=== PATIENT | female | born 1960 | race Hispanic/Latino ===

== ENCOUNTER 2019-10-03 14:46 | Emergency (ER) | payer OTHER ==
[~2019-10-03] VITALS: Ht 165.1 cm; Wt 98.4 kg
--- OUTSIDE RECORDS SUMMARY | 2019-10-03 14:48 | XMS REPORT | Continuity of Care Document ---
Author Author [facility] Organization 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 Allergies, Adverse Reactions, Alerts Allergy Name Allergy Type Status Severity Reaction(s) Onset Date Inacti ve Date Treating Clinician Comments Source No Known Allergies DA Active U 2019-05-03 00:00:00 [facility] No Known Allergies DA Active U 2018-01-15 00:00:00 [facility] No Known Contrast Allergies DA Active U 2006-01-10 00:00: 00 [facility] No Known Drug Allergies DA Active U 2006-01-10 00:00:00 [facility] No Known Food Allergies DA Active U 2006-01-10 00:00:00 [facility] No Known Other Allergies DA Active U 2006-01-10 00:00:00 [facility] Medications This patient has no known medications. Procedures This patient has no known procedures. Results Test Description Test Time Test Comments Results Result Comments Source GLUCOSE BEDSIDE TESTING 2019-05-08 12:00:00 Test Item GLUCOSE BEDSIDE TESTING (test code = GLUBED) 151 mg/dL 70-110 H GLUCOSE BEDSIDE [id number] 08:12:00* Test Item Value Reference Range Interpretation Comments GLUCOSE BEDSIDE TESTING (test code = GLUBED) 140 mg/dL 70-110 H BASIC METABOLIC [id number] 04:06:00* Test Item Value Reference Range Interpretation Comments SODIUM (test code = NA) 137 mmol/L 134-147 N POTASSIUM (test code = K) 3.7 mmol/L 3.4-5.0 N CHLORIDE (test code = CL) 102 mmol/L 100-108 N CARBON DIOXIDE (test code = CO2) 30 mmol/L 21-32 N ANION GAP (test code = GAP) 5.0 GAP calc 4.0-15.0 N GLUCOSE (test code = GLU) 142 MG/DL 70-110 H BLOOD UREA NITROGEN (test code = BUN) 10 MG/DL 7-18 N GLOMERULAR FILTRATION RATE (test code = GFR) >=60 max estimate estG FR >60 CREATININE (test code = CREAT) 0.5 MG/DL 0.6-1.0 L CALCIUM (test code = CA) 8.9 MG/DL 8.5-10.1 N CBC W/AUTO [id number] 03:59:00* Test Item Value Reference Range Interpretation Comments WHITE BLOOD CELL (test code = WBC) 8.7 K/mm3 3.5-11.0 N RED BLOOD CELL (test code = RBC) 3.87 M/mm3 4.70-6.10 L HEMOGLOBIN (test code = HGB) 11.3 G/DL 10.4-14.9 N HEMATOCRIT (test code = HCT) 35.6 % 31.5-44.1 N MEAN CELL VOLUME (test code = MCV) 92.0 Fl 84.5-98.6 N MEAN CELL HGB (test code = MCH) 29.2 pg 27.0-34.2 N MEAN CELL HGB CONCETRATION (test code = MCHC) 31.7 G/DL 31.5-34. 0 N RED CELL DISTRIBUTION WIDTH (test code = RDW) 14.4 SD 11.5-14. 5 N PLATELET COUNT (test code = PLT) 315.0 K/mm3 150-450 N MEAN PLATELET VOLUME (test code = MPV) 10.30 fL 7.0-10.5 N NEUTROPHIL % (test code = NT%) 64.2 % 40-76 N LYMPHOCYTE % (test code = LY%) 24.0 % 20.5-51.1 N MONOCYTE % (test code = MO%) 9.6 % 1.7-9.3 H EOSINOPHIL % (test code = EO%) 1.9 % 0.0-6.0 N BASOPHIL % (test code = BA%) 0.3 % 0.0-2.0 N NEUTROPHIL # (test code = NT#) 5.60 K/mm3 1.8-7.6 N LYMPHOCYTE # (test code = LY#) 2.1 K/mm3 0.6-3.2 N MONOCYTE # (test code = MO#) 0.8 K/mm3 0.3-1.1 N EOSINOPHIL # (test code = EO#) 0.2 K/mm3 0.0-0.4 N BASOPHIL # (test code = BA#) 0.0 K/mm3 0.0-0.1 N MANUAL DIFF REQUIRED (test code = MDIFF) NO DIFF/SCN CRITERIA GLUCOSE BEDSIDE [id number] 20:30:00* Test Item Value Reference Range Interpretation Comments GLUCOSE BEDSIDE TESTING (test code = GLUBED) 124 mg/dL 70-110 H GLUCOSE BEDSIDE [id number] 17:30:00* Test Item Value Reference Range Interpretation Comments GLUCOSE BEDSIDE TESTING (test code = GLUBED) 118 mg/dL 70-110 H GLUCOSE BEDSIDE [id number] 12:19:00* Test Item Value Reference Range Interpretation Comments GLUCOSE BEDSIDE TESTING (test code = GLUBED) 133 mg/dL 70-110 H GLUCOSE BEDSIDE [id number] 12:19:00* Test Item Value Reference Range Interpretation Comments GLUCOSE BEDSIDE TESTING (test code = GLUBED) 125 mg/dL 70-110 H BASIC METABOLIC [id number] 07:17:00* Test Item Value Reference Range Interpretation Comments SODIUM (test code = NA) 137 mmol/L 134-147 N POTASSIUM (test code = K) 3.6 mmol/L 3.4-5.0 N CHLORIDE (test code = CL) 103 mmol/L 100-108 N CARBON DIOXIDE (test code = CO2) 27 mmol/L 21-32 N ANION GAP (test code = GAP) 7.0 GAP calc 4.0-15.0 N GLUCOSE (test code = GLU) 122 MG/DL 70-110 H BLOOD UREA NITROGEN (test code = BUN) 15 MG/DL 7-18 N GLOMERULAR FILTRATION RATE (test code = GFR) >=60 max estimate estG FR >60 CREATININE (test code = CREAT) 0.5 MG/DL 0.6-1.0 L CALCIUM (test code = CA) 8.4 MG/DL 8.5-10.1 L CBC W/AUTO [id number] 07:12:00* Test Item Value Reference Range Interpretation Comments WHITE BLOOD CELL (test code = WBC) 8.8 K/mm3 3.5-11.0 N RED BLOOD CELL (test code = RBC) 3.49 M/mm3 4.70-6.10 L HEMOGLOBIN (test code = HGB) 10.7 G/DL 10.4-14.9 N HEMATOCRIT (test code = HCT) 32.3 % 31.5-44.1 N MEAN CELL VOLUME (test code = MCV) 92.6 Fl 84.5-98.6 N MEAN CELL HGB (test code = MCH) 30.7 pg 27.0-34.2 N MEAN CELL HGB CONCETRATION (test code = MCHC) 33.1 G/DL 31.5-34. 0 N RED CELL DISTRIBUTION WIDTH (test code = RDW) 14.8 SD 11.5-14. 5 H PLATELET COUNT (test code = PLT) 285.0 K/mm3 150-450 N MEAN PLATELET VOLUME (test code = MPV) 10.50 fL 7.0-10.5 N NEUTROPHIL % (test code = NT%) 65.5 % 40-76 LYMPHOCYTE % (test code = LY%) 24.2 % 20.5-51.1 N MONOCYTE % (test code = MO%) 8.8 % 1.7-9.3 N EOSINOPHIL % (test code = EO%) 1.4 % 0.0-6.0 N BASOPHIL % (test code = BA%) 0.1 % 0.0-2.0 N NEUTROPHIL # (test code = NT#) 5.77 K/mm3 1.8-7.6 N LYMPHOCYTE # (test code = LY#) 2.1 K/mm3 0.6-3.2 N MONOCYTE # (test code = MO#) 0.8 K/mm3 0.3-1.1 N EOSINOPHIL # (test code = EO#) 0.1 K/mm3 0.0-0.4 N BASOPHIL # (test code = BA#) 0.0 K/mm3 0.0-0.1 N MANUAL DIFF REQUIRED (test code = MDIFF) NO DIFF/SCN CRITERIA GLUCOSE BEDSIDE [id number] 20:37:00* Test Item Value Reference Range Interpretation Comments GLUCOSE BEDSIDE TESTING (test code = GLUBED) 117 mg/dL 70-110 H GLUCOSE BEDSIDE [id number] 16:54:00* Test Item Value Reference Range Interpretation Comments GLUCOSE BEDSIDE TESTING (test code = GLUBED) 121 mg/dL 70-110 H VANCOMYCIN [id number] 12:40:00* Test Item Value Reference Range Interpretation Comments VANCOMYCIN TROUGH (test code = VANCT) 15.9 mcG/ML 10-20 GLUCOSE BEDSIDE [id number] 12:01:00* Test Item Value Reference Range Interpretation Comments GLUCOSE BEDSIDE TESTING (test code = GLUBED) 163 mg/dL 70-110 H GLUCOSE BEDSIDE [id number] 08:07:00* Test Item Value Reference Range Interpretation Comments GLUCOSE BEDSIDE TESTING (test code = GLUBED) 119 mg/dL 70-110 H COMPREHENSIVE METABOLIC [id number] 05:29:00* Test Item Value Reference Range Interpretation Comments SODIUM (test code = NA) 138 mmol/L 134-147 N POTASSIUM (test code = K) 3.7 mmol/L 3.4-5.0 N CHLORIDE (test code = CL) 103 mmol/L 100-108 N CARBON DIOXIDE (test code = CO2) 28 mmol/L 21-32 N ANION GAP (test code = GAP) 7.0 GAP calc 4.0-15.0 N GLUCOSE (test code = GLU) 156 MG/DL 70-110 H BLOOD UREA NITROGEN (test code = BUN) 11 MG/DL 7-18 N GLOMERULAR FILTRATION RATE (test code = GFR) >=60 max estimate estG FR >60 CREATININE (test code = CREAT) 0.4 MG/DL 0.6-1.0 L TOTAL PROTEIN (test code = PROT) 7.0 G/DL 6.4-8.2 N ALBUMIN (test code = ALB) 2.9 G/DL 3.4-5.0 L GLOBULIN (test code = GLOB) 4.1 GM/dL ALBUMIN/GLOBULIN RATIO (test code = A/G) 0.7 RATIO 1.2-2.2 L CALCIUM (test code = CA) 8.4 MG/DL 8.5-10.1 L BILIRUBIN TOTAL (test code = BILT) 0.40 MG/DL 0.2-1.2 N SGOT/AST (test code = AST) 13 Unit/L 15-37 L SGPT/ALT (test code = ALT) 14 Unit/L 12-78 N ALKALINE PHOSPHATASE TOTAL (test code = ALKP) 79 Unit/L 45-117 N CBC W/AUTO [id number] 05:14:00* Test Item Value Reference Range Interpretation Comments WHITE BLOOD CELL (test code = WBC) 9.2 K/mm3 3.5-11.0 N RED BLOOD CELL (test code = RBC) 3.86 M/mm3 4.70-6.10 L HEMOGLOBIN (test code = HGB) 11.7 G/DL 10.4-14.9 N HEMATOCRIT (test code = HCT) 35.3 % 31.5-44.1 N MEAN CELL VOLUME (test code = MCV) 91.5 Fl 84.5-98.6 N MEAN CELL HGB (test code = MCH) 30.3 pg 27.0-34.2 N MEAN CELL HGB CONCETRATION (test code = MCHC) 33.1 G/DL 31.5-34. 0 N RED CELL DISTRIBUTION WIDTH (test code = RDW) 14.5 SD 11.5-14. 5 N PLATELET COUNT (test code = PLT) 297.0 K/mm3 150-450 N MEAN PLATELET VOLUME (test code = MPV) 10.20 fL 7.0-10.5 N NEUTROPHIL % (test code = NT%) 74.7 % 40-76 LYMPHOCYTE % (test code = LY%) 19.6 % 20.5-51.1 L MONOCYTE % (test code = MO%) 5.3 % 1.7-9.3 N EOSINOPHIL % (test code = EO%) 0.2 % 0.0-6.0 N BASOPHIL % (test code = BA%) 0.2 % 0.0-2.0 N NEUTROPHIL # (test code = NT#) 6.90 K/mm3 1.8-7.6 N LYMPHOCYTE # (test code = LY#) 1.8 K/mm3 0.6-3.2 N MONOCYTE # (test code = MO#) 0.5 K/mm3 0.3-1.1 N EOSINOPHIL # (test code = EO#) 0.0 K/mm3 0.0-0.4 N BASOPHIL # (test code = BA#) 0.0 K/mm3 0.0-0.1 N MANUAL DIFF REQUIRED (test code = MDIFF) NO DIFF/SCN CRITERIA GLUCOSE BEDSIDE [id number] 20:26:00* Test Item Value Reference Range Interpretation Comments GLUCOSE BEDSIDE TESTING (test code = GLUBED) 145 mg/dL 70-110 H - CT LOWER EXTRM W/CON [id number] 18:46:00 Name: FAITH MOTA [facility] : 1960 Age/S: 59 / F [address] [address] Unit #: [id number] Loc: [place] [address] Phys: Beck Delatorre MD Acct: [id number] Dis Date: 05/08/2019 Status: DIS IN PHONE #: [phone] Exam Date: 05/05/2019 1820 FAX #: Reason: Abscess EXAMS: CPT: [id number] [place] LOWER EXTRM W/[place] [address] Location code: R 16 CT Right Tibia and Fibula Indication: Abscess. Comparison: None Technique: Axial images obtained with sagittal and coronal reconstruction. This exam was performed according to our departmental dose-optimization program, which includes automated exposure control, adjustment of the mA and/or kV according to patient size and/or use of iterative reconstruction technique. Findings: 15% lateral patellar subluxation. Mild lateral patellofemoral hypertrophic spurring. Small joint effusion. Moderate narrowing of the knee joint, more prominently affecting the medial compartment, with mild hypertrophic spurring. No fracture, subluxation or dislocation. No evidence of periosteal reaction. No evidence of trabecular or cortical or cortical destruction. Vascular and musculoskeletal s tructures are intact. No evidence of muscle edema or lesion. No perifasc ial fluid. Mild subcutaneous edema throughout the calf. A pretibial subcutaneous abscess anterior to the proximal tibia measur es 3.5 cm maximum width, 1.2 cm in maximum depth, and 10 cm in vertical di mension. A small 2 mm radiopaque density lies deep to the skin at the sup erior margin of the lesion. IMPRESSION: No diamante dence of osteomyelitis. Pretibial abscess measures 10 x 3.5 x 1.2 cm. A 2 mm subcutaneous density is identified at the anterosuperior margin o f the lesion, and may represent a foreign body or soft tissue calcificat ion. PAGE 1 Signed Report (GARY NUED) Name: FAITH MOTA [place] : 1960 Age/S: 59 / F [address] [address] Unit #: [id number] Loc: [place] [address] Phys: Beck Mendoza MD Acct: [id number] Dis Date: 05/08/2019 Status: DIS IN PHON E #: [phone] Exam Date: 05/05/20191819 FAX #: Reason: Abscess EXAMS: CPT: [id number] [place] LOWER EXTRM W/[place] [address] <Continued> at 1846 Reported and signed by: Cuate Dewitt M.D. CC: Florentin Pyle DO; Beck Delatorre MD Technologist:Cadence Hannon, RT(R) CTDI: DLP: Trnscb Date/Time: 05/05/2019 (1845) [email or web address] Orig Print D/T: S: 05/05/2019 (1849) PAGE 2 Signed Report - CT LOWER EXTRM W/CON [id number] 18:46:00 Name: FAITH MOTA [facility] : 1960 Age/S: 59 / F [address] [address] Unit #: [id number] Loc: [place] [address] Phys: Beck Delatorre MD Acct: [id number] Dis Date: Status: ADM IN PHONE #: [phone] Exam Date: 05/05/2019 182 FAX #: Reason: Abscess EXAMS: CPT: [id number] [place] LOWER EXTRM W/[place] [address] Location code: R 16 CT Right Tibia and Fibula Indication: Abscess. Comparison: None Technique: Axial images obtained with sagittal and coronal reconstruction. This exam was performed according to our departmental dose- optimization program, which includes automated exposure control, adjustment of the mA and/or kV according to patient size and/or use of iterative reconstruction technique. Findings: 15% lateral patellar subluxation. Mild lateral patellofemoral hypertrophic spurring. Small joint effusion. Moderate narrowing of the knee joint, more prominently affecting the medial compartment, with mild hypertrophic spurring. No fracture, subluxation or dislocation. No evidence of periosteal reaction. No evidence of trabecular or cortical or cortical destruction. Vascular and musculoskeletal structures are intact. No evidence of muscle edema or lesion. No perifascial fluid. Mild subcutaneous edema throughout the calf. A pretibial subcutaneous abscess anterior to the proximal tibia measures 3.5 cm maximum width, 1.2 cm in maximum depth, and 10 cm in vertical dimension. A small 2 mm radiopaque density lies deep to the skin at the superior margin of the lesion. IMPRESSION: No evidence of osteomyelitis. Pretibial abscess measures 10 x 3.5 x 1.2 cm. A 2 mm subcutaneous density is identified at the anterosuperior margin of the lesion, and may represent a foreign body or soft tissue calcification. PAGE 1 Signed Report (CONTINUED) Name: FAITH MOTA [facility] : 1960 Age/S: 59 / F [address] [facility] [address] Unit #: [id number] Loc: [place] [address] Phys: Beck Mendoza MD Acct: [id number] Dis Date: Status: ADM IN PHON E #: [phone] Exam Date: 05/05/2019 182 FAX #: Reason: Abscess EXAMS: CPT: [id number] CT LOWER EXTRM W/[place] [address] <Continued> at 1846 Reported and signed by: Cuate Dewitt M.D. CC: Florentin Pyle DO; Beck Delatorre MD Technologist:Cadence Hannon, RT(R) CTDI: DLP: Trnscb Date/Time: 05/05/2019 (184) [email or web address] Orig Print D/T: S: 05/05/2019 (185) PAGE 2 Signed Report GLUCOSE BEDSIDE [id number] 17:12:00* Test Item Value Reference Range Interpretation Comments GLUCOSE BEDSIDE TESTING (test code = GLUBED) 98 mg/dL 70-110 N GLUCOSE BEDSIDE [id number] 12:04:00* Test Item Value Reference Range Interpretation Comments GLUCOSE BEDSIDE TESTING (test code = GLUBED) 123 mg/dL 70-110 H CBC W/AUTO [id number] 11:51:00* Test Item Value Reference Range Interpretation Comments WHITE BLOOD CELL (test code = WBC) 8.8 K/mm3 3.5-11.0 N RED BLOOD CELL (test code = RBC) 4.07 M/mm3 4.70-6.10 L HEMOGLOBIN (test code = HGB) 12.1 G/DL 10.4-14.9 N HEMATOCRIT (test code = HCT) 37.1 % 31.5-44.1 N MEAN CELL VOLUME (test code = MCV) 91.2 Fl 84.5-98.6 N MEAN CELL HGB (test code = MCH) 29.7 pg 27.0-34.2 N MEAN CELL HGB CONCETRATION (test code = MCHC) 32.6 G/DL 31.5-34. 0 N RED CELL DISTRIBUTION WIDTH (test code = RDW) 14.9 SD 11.5-14. 5 H PLATELET COUNT (test code = PLT) 309.0 K/mm3 150-450 N MEAN PLATELET VOLUME (test code = MPV) 10.30 fL 7.0-10.5 N NEUTROPHIL % (test code = NT%) 64.0 % 40-76 LYMPHOCYTE % (test code = LY%) 27.8 % 20.5-51.1 N MONOCYTE % (test code = MO%) 7.2 % 1.7-9.3 N EOSINOPHIL % (test code = EO%) 0.8 % 0.0-6.0 N BASOPHIL % (test code = BA%) 0.2 % 0.0-2.0 N NEUTROPHIL # (test code = NT#) 5.62 K/mm3 1.8-7.6 N LYMPHOCYTE # (test code = LY#) 2.4 K/mm3 0.6-3.2 N MONOCYTE # (test code = MO#) 0.6 K/mm3 0.3-1.1 N EOSINOPHIL # (test code = EO#) 0.1 K/mm3 0.0-0.4 N BASOPHIL # (test code = BA#) 0.0 K/mm3 0.0-0.1 N MANUAL DIFF REQUIRED (test code = MDIFF) NO DIFF/SCN CRITERIA BASIC METABOLIC [id number] 11:15:00* Test Item Value Reference Range Interpretation Comments SODIUM (test code = NA) 138 mmol/L 134-147 N POTASSIUM (test code = K) 3.9 mmol/L 3.4-5.0 N CHLORIDE (test code = CL) 104 mmol/L 100-108 N CARBON DIOXIDE (test code = CO2) 29 mmol/L 21-32 N ANION GAP (test code = GAP) 5.0 GAP calc 4.0-15.0 N GLUCOSE (test code = GLU) 151 MG/DL 70-110 H BLOOD UREA NITROGEN (test code = BUN) 17 MG/DL 7-18 N GLOMERULAR FILTRATION RATE (test code = GFR) >=60 max estimate estG FR >60 CREATININE (test code = CREAT) 0.5 MG/DL 0.6-1.0 L CALCIUM (test code = CA) 8.8 MG/DL 8.5-10.1 N VANCOMYCIN [id number] 09:43:00* Test Item Value Reference Range Interpretation Comments VANCOMYCIN TROUGH (test code = VANCT) 9.6 mcG/ML 10-20 L GLUCOSE BEDSIDE [id number] 08:18:00* Test Item Value Reference Range Interpretation Comments GLUCOSE BEDSIDE TESTING (test code = GLUBED) 141 mg/dL 70-110 H GLUCOSE BEDSIDE [id number] 22:12:00* Test Item Value Reference Range Interpretation Comments GLUCOSE BEDSIDE TESTING (test code = GLUBED) 139 mg/dL 70-110 H GLUCOSE BEDSIDE [id number] 16:15:00* Test Item Value Reference Range Interpretation Comments GLUCOSE BEDSIDE TESTING (test code = GLUBED) 125 mg/dL 70-110 H GLUCOSE BEDSIDE [id number] 11:48:00* Test Item Value Reference Range Interpretation Comments GLUCOSE BEDSIDE TESTING (test code = GLUBED) 161 mg/dL 70-110 H GLUCOSE BEDSIDE [id number] 09:45:00* Test Item Value Reference Range Interpretation Comments GLUCOSE BEDSIDE TESTING (test code = GLUBED) 142 mg/dL 70-110 H GLUCOSE BEDSIDE [id number] 07:50:00* Test Item Value Reference Range Interpretation Comments GLUCOSE BEDSIDE TESTING (test code = GLUBED) 124 mg/dL 70-110 H - XR TIBIA/FIBULA 2 V [id number] 22:55:00 Name: FAITH MOTA [place] : 1960 Age/S: 59 / F [address] [facility] [place] Unit #: [id number] Loc: [place] [address] Phys: Beck Delatorre MD Acct: [id number] Dis Date: [id number] Status: DIS IN PHONE #: [phone] Exam Date: 05/03/20191910 FAX #: Reason: swelling EXAMS: CPT: [id number] XR TIBIA/[place] [address] Fluoro Time: DAP (Gy m2): Air Kerma (mGy): EXAM: - XR TIBIA/FIBULA 2 V BI HISTORY: swelling Location code:C3 COMPARISON: None available at time of interpretation FINDINGS: AP and lateral view of bilateral tibia and fibula is provided. There is no acute fracture or malalignment. The osseous structures are intact. Degenerative features about the knees are present. No osteolysis is present. IMPRESSION: No acute osseous abnormality. at 2255 Reported and signed by: Jose G Florez MD CC: Florentin Pyle DO; Beck Delatorre MD PAGE 1 Signed Report Name: FAITH MOTA [place] : 1960 Age/S: 59 / F [address] [facility] Unit #: [id number] Loc: [place], [place] [address] Phys: Beck Delatorre MD Acct: [id number] Dis Date: [id number] Status: DIS IN PHONE #: [phone] Exam Date: 05/03/20191910 FAX #: Reason: swelling EXAMS: CPT: [id number] XR TIBIA/[place] [address] Fluoro Time: DAP (Gy m2): Air Kerma (mGy): < Continued> Technologist: Michell Espinosa RT(R)(CT) Trnscb Date/Time: 05/03/2019 (2015) [email or web address] Orig Print D/T: S: 05/03/2019 (2257) PAGE 2 Signed Report - XR TIBIA/FIBULA 2 V [id number] 22:55:00 [facility] [place] [facility] 1960 Age/S: 59 / F [address] [address] Unit #: [id number] Loc: [place] [address] Phys: Beck Delatorre MD Acct: [id number] Dis Date: Status: ADM IN PHONE #: [phone] Exam Date: 05/03/20191910 FAX #: Reason: swelling EXAMS: CPT: [id number] XR TIBIA/[place] [address] Fluoro Time: DAP (Gy m2): Air Kerma (mGy): EXAM: - XR TIBIA/FIBULA 2 V BI HISTORY: swelling Location code:C3 COMPARISON: None available at time of interpretation FINDINGS: AP and lateral view of bilateral tibia and fibula is provided. There is no acute fracture or malalignment. The osseous structures are intact. Degenerative features about the knees are present. No osteolysis is present. IMPRESSION: No acute osseous abnormality. at 6998 Reported and signed by: Jose G Florez MD CC: Florentin Pyle DO; Beck Delatorre MD PAGE 1 Signed Report [facility] [place] [facility] 1960 Age/S: 59 / F [address] [facility] Unit #: [id number] Loc: [place] [address] Phys: Beck Delatorre MD Acct: [id number] Dis Date: Status: ADM IN PHONE #: [phone] Exam Date: 05/03/20191910 FAX #: Reason: swelling EXAMS: CPT: [id number] XR TIBIA/[place] [address] Fluoro Time: DAP (Gy m2): Air Kerma (mGy): <Continued> Technologist: Michell Espinosa RT(R)(CT) Trnscb Date/Time: 05/03/2019 (2254) Ruth Orig Print D/T: S: 05/03/2019 (5721) PAGE 2 Signed Report - DUP VEIN UNI [id number] 22:11:00 Name: FAITH MOTA : 1960 Age/S: 59 / F [address] [address] Unit #: [id number] Loc: [place] [address] Phys: Janie Delatorre MD Acct: [id number] Di s Date: 05/08/2019 Status: DIS IN PHONE #: [phone] Exam Date: 05/03/20192024 FAX #: Reason: swelling EXAMS: CPT: [id number] [address] EXAM: - DUP VEIN UNI RT HISTORY: swelling Location code:C3 TE CHNIQUE: Grayscale real-time B-mode imaging with color flow and spectral flow Doppler analysis was performed of the right lower extremity. COMPARISON: None available time of interpretation. FINDINGS: There is normal compressibility with no evidence of thrombus involving the visualized venous structures of the right lower extremity. The visualized veins of the right lower extremity are common femoral, s uperficial femoral, proximal profunda femoral, popliteal anterior tibial a nd posterior tibial veins were seen as well. IMPRESSION: No evidence of DVT in the visualized structures of the right lower ex tremity. at 2211 Reported and signed by: Jose G Florez MD CC: Cory Pyle DO; Beck Delatorre MD Technologist: Tami Fernandes on, [facility] Trnscb Date/Time: 05/03/2019 (2210) Bonilla [id number] PAGE 1 Signed Report Name: FAITH MOTA : 1960 Age/S: 59 / F [address] [address] Unit #: [id number] Loc: [place] [address] Phys: Beck Delatorre MD Acct: [id number] Dis Date: 05/08/2019 Status: DIS IN PHONE #: [phone] Exam Date: 05/03/20192024 FAX #: Reason: swelling EXAMS: CPT: [id number] [place] [address] < Continued> Orig Print D/T: S: 05/03/2019 (4) Probe: PAGE 2 Signed Report - DUP VEIN UNI [id number] 22:11:00 Name: FAITH MOTA [place] : 1960 Age/S: 59 / F [address] [address] Unit #: [id number] Loc: [place] [address] Phys: Janie Delatorre MD Acct: [id number] Di s Date: Status: ADM IN PHONE #: [phone] Exam Date: 05/03/20192024 FAX #: Reason: swelling EXAMS: CPT: [id number] [place] [address] EXAM: - DUP VEIN UNI RT HISTORY: swelling Location code:C3 TE CHNIQUE: Grayscale real-time B-mode imaging with color flow and spectral flow Doppler analysis was performed of the right lower extremity. COMPARISON: None available time of interpretation. FINDINGS: There is normal compressibility with no evidence of thrombus involving the visualized venous structures of the right lower extremity. The visualized veins of the right lower extremity are common femoral, s uperficial femoral, proximal profunda femoral, popliteal anterior tibial a nd posterior tibial veins were seen as well. IMPRESSION: No evidence of DVT in the visualized structures of the right lower ex tremity. at 2211 Reported and signed by: Jose G Florez MD CC: Cory Pyle DO; Beck Delatorre MD Technologist: Tami Fernandes on, [facility] Date/Time: 05/03/2019 (2210) Bonilla [id number] PAGE 1 Signed Report Name: FAITH MOTA [place] : 1960 Age/S: 59 / F [id number] Unit #: [id number] Loc: [place] [address] Phys: Beck Delatorre MD Acct: [id number] Dis Date: Status: ADM IN PHONE #: [phone] Exam Date: 05/03/20192024 FAX #: Reason: swelling EXAMS: CPT: [id number] [place] [address] < Continued> Orig Print D/T: S: 05/03/2019 (9111) Probe: PAGE 2 Signed Report GLUCOSE BEDSIDE [id number] 20:31:00 * Test Item Value Reference Range Interpretation Comments GLUCOSE BEDSIDE TESTING (test code = GLUBED) 134 mg/dL 70-110 H GLYCOSYLATED HEMOGLOBIN [id number] 19:12:00* Test Item Value Reference Range Interpretation Comments GLYCOSYLATED HEMOGLOBIN (HA1C) (test code = GLYHGB) 8.9 % A1C 4. 2-6.3 H ESTIMATED AVERAGE GLUCOSE (test code = EAG) 209 MG/DLest COMPREHENSIVE METABOLIC [id number] 19:07:00* Test Item Value Reference Range Interpretation Comments SODIUM (test code = NA) 139 mmol/L 134-147 N POTASSIUM (test code = K) 3.5 mmol/L 3.4-5.0 N CHLORIDE (test code = CL) 103 mmol/L 100-108 N CARBON DIOXIDE (test code = CO2) 30 mmol/L 21-32 N ANION GAP (test code = GAP) 6.0 GAP calc 4.0-15.0 N GLUCOSE (test code = GLU) 91 MG/DL 70-110 N BLOOD UREA NITROGEN (test code = BUN) 15 MG/DL 7-18 N GLOMERULAR FILTRATION RATE (test code = GFR) >=60 max estimate estG FR >60 CREATININE (test code = CREAT) 0.5 MG/DL 0.6-1.0 L TOTAL PROTEIN (test code = PROT) 7.8 G/DL 6.4-8.2 N ALBUMIN (test code = ALB) 3.2 G/DL 3.4-5.0 L GLOBULIN (test code = GLOB) 4.6 GM/dL ALBUMIN/GLOBULIN RATIO (test code = A/G) 0.7 RATIO 1.2-2.2 L CALCIUM (test code = CA) 9.1 MG/DL 8.5-10.1 N BILIRUBIN TOTAL (test code = BILT) 0.40 MG/DL 0.2-1.2 N SGOT/AST (test code = AST) 13 Unit/L 15-37 L SGPT/ALT (test code = ALT) 14 Unit/L 12-78 N ALKALINE PHOSPHATASE TOTAL (test code = ALKP) 106 Unit/L 45-117 N [id number] 19:07:00* Test Item Value Reference Range Interpretation Comments PHOSPHOROUS (test code = PHOS) 3.7 MG/DL 2.5-4.9 N [id number] 19:07:00* Test Item Value Reference Range Interpretation Comments MAGNESIUM (test code = MAG) 1.8 MG/DL 1.8-2.4 N PROTHROMBIN [id number] 18:57:00* Test Item Value Reference Range Interpretation Comments PT PATIENT (test code = PTP) 11.9 SECONDS 9.3-12.9 N INTERNATIONAL NORMAL RATIO (test code = INR) 1.05 INR Unit 0.8-1.2 N CBC W/AUTO [id number] 18:53:00* Test Item Value Reference Range Interpretation Comments WHITE BLOOD CELL (test code = WBC) 10.5 K/mm3 3.5-11.0 N RED BLOOD CELL (test code = RBC) 4.17 M/mm3 4.70-6.10 L HEMOGLOBIN (test code = HGB) 12.3 G/DL 10.4-14.9 N HEMATOCRIT (test code = HCT) 37.1 % 31.5-44.1 N MEAN CELL VOLUME (test code = MCV) 89.0 Fl 84.5-98.6 N MEAN CELL HGB (test code = MCH) 29.5 pg 27.0-34.2 N MEAN CELL HGB CONCETRATION (test code = MCHC) 33.2 G/DL 31.5-34. 0 N RED CELL DISTRIBUTION WIDTH (test code = RDW) 14.3 SD 11.5-14. 5 N PLATELET COUNT (test code = PLT) 314.0 K/mm3 150-450 N MEAN PLATELET VOLUME (test code = MPV) 10.50 fL 7.0-10.5 N NEUTROPHIL % (test code = NT%) 56.2 % 40-76 N LYMPHOCYTE % (test code = LY%) 34.0 % 20.5-51.1 N MONOCYTE % (test code = MO%) 8.1 % 1.7-9.3 N EOSINOPHIL % (test code = EO%) 1.4 % 0.0-6.0 N BASOPHIL % (test code = BA%) 0.3 % 0.0-2.0 N NEUTROPHIL # (test code = NT#) 5.87 K/mm3 1.8-7.6 N LYMPHOCYTE # (test code = LY#) 3.6 K/mm3 0.6-3.2 H MONOCYTE # (test code = MO#) 0.9 K/mm3 0.3-1.1 N EOSINOPHIL # (test code = EO#) 0.2 K/mm3 0.0-0.4 N BASOPHIL # (test code = BA#) 0.0 K/mm3 0.0-0.1 N MANUAL DIFF REQUIRED (test code = MDIFF) NO DIFF/SCN CRITERIA GLUCOSE BEDSIDE [id number] 17:39:00* Test Item Value Reference Range Interpretation Comments GLUCOSE BEDSIDE TESTING (test code = GLUBED) 93 mg/dL 70-110 N - XR CHEST 2 [id number] 13:35:00 Name: FAITH MOTA [place] : 1960 Age/S: 59 / F [address] Unit #: [id number] Loc: [place] [address] Phys: Florentin Pyle DO Acct: [id number] Dis Date: Status: REG CLI PHONE #: [phone] Exam Date: 03/08/2019 1303 FAX #: Reason: BRONCHITIS,ANGINA PECTORIS, ESSENTIAL HYPERTENS EXAMS: CPT: [id number] XR CHEST 2 V 87402 Fluoro Time: DAP (Gy m2): Air Kerma (mGy): Location code: B2 Chest two views frontal and lateral Indication: BRONCHITIS,ANGINA PECTORIS, ESSENTIAL HYPERTENSION. Comparison: None Findings: The heart and mediastinum are not remarkable. Costophrenic angles are clear. Lungs are clear. Mild thoracic spondylosis. Impression: 1. No radiographic evidence of acute cardiopulmonary disease. at 1335 Reported and signed by: Cuate Dewitt M.D. CC: Florentin Pyle DO PAGE 1 Signed Report Name: FAITH MOTA Ear[place] : 1960 Age/S: 59 / F [address] Unit #: [id number] Loc: [place] [address] Phys: Florentin Pyle DO Acct: [id number] Dis Date: Status: REG CLI PHONE #: [phone] Exam Date: 03/08/2019 1309 FAX #: Reason: BRONCHITIS,ANGINA PECTORIS, ESSENTIAL HYPERTENS EXAMS: CPT: [id number] XR CHEST 2 V 00654 Fluoro Time: DAP (Gy m2): Air Kerma (mGy): <Continued> Technologist: Ana Lilia Gallardo RT(R) Trnscb Date/Time: 03/08/2019 (6063) [id number] Orig Print D/T: S: 03/08/2019 (9572) PAGE 2 Signed Report CBC W/AUTO [id number] 13:23:00* Test Item Value Reference Range Interpretation Comments WHITE BLOOD CELL (test code = WBC) 9.0 K/mm3 3.5-11.0 N RED BLOOD CELL (test code = RBC) 5.02 M/mm3 4.70-6.10 N HEMOGLOBIN (test code = HGB) 14.6 G/DL 10.4-14.9 N HEMATOCRIT (test code = HCT) 44.3 % 31.5-44.1 H MEAN CELL VOLUME (test code = MCV) 88.2 Fl 84.5-98.6 N MEAN CELL HGB (test code = MCH) 29.1 pg 27.0-34.2 N MEAN CELL HGB CONCETRATION (test code = MCHC) 33.0 G/DL 31.5-34. 0 N RED CELL DISTRIBUTION WIDTH (test code = RDW) 13.2 SD 11.5-14. 5 N PLATELET COUNT (test code = PLT) 289.0 K/mm3 150-450 N MEAN PLATELET VOLUME (test code = MPV) 10.60 fL 7.0-10.5 H NEUTROPHIL % (test code = NT%) 52.9 % 40-76 N LYMPHOCYTE % (test code = LY%) 37.0 % 20.5-51.1 N MONOCYTE % (test code = MO%) 7.0 % 1.7-9.3 N EOSINOPHIL % (test code = EO%) 2.8 % 0.0-6.0 N BASOPHIL % (test code = BA%) 0.3 % 0.0-2.0 N NEUTROPHIL # (test code = NT#) 4.75 K/mm3 1.8-7.6 N LYMPHOCYTE # (test code = LY#) 3.3 K/mm3 0.6-3.2 H MONOCYTE # (test code = MO#) 0.6 K/mm3 0.3-1.1 N EOSINOPHIL # (test code = EO#) 0.3 K/mm3 0.0-0.4 N BASOPHIL # (test code = BA#) 0.0 K/mm3 0.0-0.1 N MANUAL DIFF REQUIRED (test code = MDIFF) NO DIFF/SCN CRITERIA - XR SHOULDER 2 + [id number] 10:15:00 FAX: Jammie Falk [phone] [place]: St: [facility] Name: FAITH ANTHONY [facility] : [birth year] Age/S: 45/F [address] [facility] Unit #: [id number] Loc: [place] [address] Phys: Jammie Falk MD Acct: [id number] Dis Date: Status: UNK PHONE #: [phone] Exam Date: 01/10/2006 1135 FAX #: [phone] Reason: - RIGHT EXAMS: CPT CODE: [id number] XR SHOULDER 2 + V 36220 DICTATED: 01/11/06, 1015 HI STORY: RIGHT SHOULDER, THREE VIEWS, 01/10/06: Thr ee views of the right shoulder do not demonstrate acute fracture or disloc ation. The joint spaces are maintained. /hardy/29511 E lectronically Signed by Ananda Tovar on 01/11/2006 at 1549 Reported and signed by: Ramírez Tovar M.D CC: Jammie Valdes MD Technologist: MOSES ACOSTA,RT(R) Trnscrd Date/Time/By: 01/11/2006 (12 32) : By: Jorden Orig Print D/T: S: 01/11/2006 (6669) PAGE 1 Signed Report - XR TIBIA/FIBULA 2 [id number] 10:11:00 FAX: Jammie Falk [phone] [place]: St: [place]K Name: FAITH ANTHONY [facility] : [birth year] Age/S: 45/F [address] [facility] Unit #: [id number] Loc: [place] [address] Phys: Vu,Loc Gómez Acct: [id number] Dis Date: Status: UNK PHONE #: [phone] Exam Date: 01/10/20062203 FAX #: [phone] Reason: - RIGHT EXAMS: CPT CODE: [id number] XR TIBIA/FIBULA 2 VIEWS 91191 DICTATED: 01/11/06, 1011 HI STORY: LEG CRAMPING. RIGHT TIBIA/FIBULA, TWO VIEWS, 01/10/06: No acute osseous or soft tissue pathology is evident. QC 1 //29017 at 1135 Reported and signed by: Thierry Torres M.D. CC: Jammie Falk MD Technologist: EDUARDO JEAN Trnscrd Date/Time/By: 01/11/2006 (1150) : By: Jorden Orig Print D/T: (1010) S: 01/19/2006 (5411) PAGE 1 Signed Report - XR KNEE 4 + [id number] 09:22:00 FAX: Jammie Falk [phone] [place]: St: [place] Name: FAITH ANTHONY [facility] : [birth year] Age/S: 45/F [address] [facility] Unit #: [id number] Loc: [place] [address] Phys: Jammie Falk MD Acct: [id number] Dis Date: Status: UNK PHONE #: [phone] Exam Date: 01/07/2006 1615 FAX #: [phone] Reason: R - RIGHT EXAMS: CPT CODE: [id number] XR KNEE 4 + V 55653 [id number] XR L-SPINE 4+ VIEWS 81120 [id number] XR FINGER(S) 2 + V 00559 [id number] XR KNEE 4 + V 74540 DICTATED: 01/08/06921 HISTORY: FELL. R IGHT KNEE FOUR VIEWS, 01/07/06: No acute traumatic or destructive lesion of bone, opaque foreign body, or joint effusion is demonstrated. V marshall mild osteoarthritic changes are most evident in the medial compartment . LEFT KNEE FOUR VIEWS, 01/07/06: No acute osseous pathology, joint effusion or opaque foreign body is demon strated. Mild arthritic changes are present. RIGH T FINGER, MIDDLE DIGIT, THREE VIEWS, 01/07/06: No acute osseous in jury or opaque foreign body is demonstrated. LUMBA R SPINE FOUR VIEWS, 01/07/06: No acute traumatic or destructive le heri of bone or spondylolysis is demonstrated. Spondylosis and facet arth ropathy are noted. There is mild sacroiliitis, greater on the right. IMPRESSION: NO ACUTE OSSEOUS INJURY DEMONSTRATED IN THE LEFT OR RIGHT KNEE, LUMBAR SPINE, OR RIGHT MIDDLE FINGER. QC=1 WC/jcw/#00038 PAGE 1 Signed Report (CONTINUED) FAX: Jammie Falk [phone] [place]: St: [facility] Name: [facility] [place] : 1960 Age/S: 45/F [address] [facility] #: [id number] Loc: [place], [place] [address] Phys: Jammie Falk MD Acct: [id number] Dis Date: Status: UNK PHONE #: [phone] Exam Date: 01/07/2006 1615 FAX #: [phone] Reason: R - RIGHT EXAMS: CPT CODE: [id number] XR KNEE 4 + V 83957 [id number] XR L-SPINE 4+ VIEWS 62606 [id number] XR FINGER(S) 2 + V 10573 [id number] XR KNEE 4 + V 35006 <Continued> at 1651 Reported and signed by: Jason Torres M.D. CC: Jammie Falk MD Technologist: BLAYNE LO; Bill Patel RT(R),(MR),(CT) Trnscrd Date/Time/By: 01/08/2006 (0932) : By: Luisa.JCW Orig Print D/T: (5617) S: 01/14/2006 (3509) PAGE 2 Signed Report - XR KNEE 4 + [id number] 09:22:00 FAX: Jammie Falk [phone] [place]: B St: [place] Name: FAITH ANTHONY [facility] : [birth year] Age/S: 45/F [address] Unit #: [id number] Loc: [place] [address] Phys: Jammie Falk MD Acct: [id number] Dis Date: Status: UNK PHONE #: [phone] Exam Date: 01/07/2006 1615 FAX #: [phone] Reason: R - RIGHT EXAMS: CPT CODE: [id number] XR KNEE 4 + V 23983 [id number] XR L-SPINE 4+ VIEWS 92285 [id number] XR FINGER(S) 2 + V 43954 [id number] XR KNEE 4 + V 90726 DICTATED: 01/08/06, 921 HISTORY: FELL. R IGHT KNEE FOUR VIEWS, 01/07/06: No acute traumatic or destructive lesion of bone, opaque foreign body, or joint effusion is demonstrated. V marshall mild osteoarthritic changes are most evident in the medial compartment . LEFT KNEE FOUR VIEWS, 01/07/06: No acute osseous pathology, joint effusion or opaque foreign body is demon strated. Mild arthritic changes are present. RIGH T FINGER, MIDDLE DIGIT, THREE VIEWS, 01/07/06: No acute osseous in jury or opaque foreign body is demonstrated. LUMBA R SPINE FOUR VIEWS, 01/07/06: No acute traumatic or destructive le heri of bone or spondylolysis is demonstrated. Spondylosis and facet arth ropathy are noted. There is mild sacroiliitis, greater on the right. IMPRESSION: NO ACUTE OSSEOUS INJURY DEMONSTRATED IN THE LEFT OR RIGHT KNEE, LUMBAR SPINE, OR RIGHT MIDDLE FINGER. QC=1 WC/jcw/#67639 PAGE 1 Signed Report (CONTINUED) FAX: Jammie Falk [phone] [place]: St: [place] Name: MOTAFAITH [facility] [place] : 1960 Age/S: 45/F [address] Unit #: [id number] Loc: [place] [address] Phys: Jammie Falk MD Acct: [id number] Dis Date: Status: UNK PHONE #: [phone] Exam Date: 01/07/2006 1615 FAX #: [phone] Reason: R - RIGHT EXAMS: CPT CODE: [id number] XR KNEE 4 + V 48904 [id number] XR L-SPINE 4+ VIEWS 72978 [id number] XR FINGER(S) 2 + V 24442 [id number] XR KNEE 4 + V 32398 <Continued> at 1651 Reported and signed by: Jason Torres M.D. CC: Jammie Falk MD Technologist: BLAYNE LO; Bill Patel RT(R),(MR),(CT) Trnscrd Date/Time/By: 01/08/2006 (0932) : By: Luisa.[email or web address] Orig Print D/T: (1243) S: 01/14/2006 (3038) PAGE 2 Signed Report - XR L-SPINE 4+ [id number] 09:22:00 FAX: Jammie Falk [phone] [place]: St: [place] Name: FAITH ANTHONY [facility] : [birth year] Age/S: 45/F [address] Unit #: [id number] Loc: [place] [address] Phys: Jammie Falk MD Acct: [id number] Dis Date: Status: UNK PHONE #: [phone] Exam Date: 01/07/2006 1615 FAX #: [phone] Reason: R - RIGHT EXAMS: CPT CODE: [id number] XR KNEE 4 + V 39963 [id number] XR L-SPINE 4+ VIEWS 16338 [id number] XR FINGER(S) 2 + V 81519 [id number] XR KNEE 4 + V 71267 DICTATED: 01/08/06, 921 HISTORY: FELL. R IGHT KNEE FOUR VIEWS, 01/07/06: No acute traumatic or destructive lesion of bone, opaque foreign body, or joint effusion is demonstrated. V marshall mild osteoarthritic changes are most evident in the medial compartment . LEFT KNEE FOUR VIEWS, 01/07/06: No acute osseous pathology, joint effusion or opaque foreign body is demon strated. Mild arthritic changes are present. RIGH T FINGER, MIDDLE DIGIT, THREE VIEWS, 01/07/06: No acute osseous in jury or opaque foreign body is demonstrated. LUMBA R SPINE FOUR VIEWS, 01/07/06: No acute traumatic or destructive le heri of bone or spondylolysis is demonstrated. Spondylosis and facet arth ropathy are noted. There is mild sacroiliitis, greater on the right. IMPRESSION: NO ACUTE OSSEOUS INJURY DEMONSTRATED IN THE LEFT OR RIGHT KNEE, LUMBAR SPINE, OR RIGHT MIDDLE FINGER. QC=1 WC/jcw/#07537 PAGE 1 Signed Report (CONTINUED) FAX: Jammie Falk [place]: St: [facility] Name: FAITH MOTA [facility] [place] : 1960 Age/S: 45/F [address] Unit #: [id number] Loc: [place], [place] [address] Phys: Jammie Falk MD Acct: [id number] Dis Date: Status: UNK PHONE #: [phone] Exam Date: 01/07/2006 1615 FAX #: [phone] Reason: R - RIGHT EXAMS: CPT CODE: [id number] XR KNEE 4 + V 63721 [id number] XR L-SPINE 4+ VIEWS 76613 [id number] XR FINGER(S) 2 + V 42760 [id number] XR KNEE 4 + V 08325 <Continued> at 1651 Reported and signed by: Jason Torres M.D. CC: Jammie Falk MD Technologist: BLAYNE LO; Bill Patel RT(R),(MR),(CT) Trnscrd Date/Time/By: 01/08/2006 (0932) : By: Luisa.JCW Orig Print D/T: (1391) S: 01/14/2006 (6392) PAGE 2 Signed Report - XR FINGER(S) 2 + [id number] 09:22:00 FAX: Jammie Falk [phone] [place]: St: [facility] Name: FAITH ANTHONY [facility] : [birth year] Age/S: 45/F [address] [facility] Unit #: [id number] Loc: [place] [address] Phys: Jammie Falk MD Acct: [id number] Dis Date: Status: UNK PHONE #: [phone] Exam Date: 01/07/2006 1615 FAX #: [phone] Reason: R - RIGHT EXAMS: CPT CODE: [id number] XR KNEE 4 + V 57883 [id number] XR L-SPINE 4+ VIEWS 99670 [id number] XR FINGER(S) 2 + V 32538 [id number] XR KNEE 4 + V 08639 DICTATED: 01/08/06, 0922 HISTORY: FELL. R IGHT KNEE FOUR VIEWS, 01/07/06: No acute traumatic or destructive lesion of bone, opaque foreign body, or joint effusion is demonstrated. V marshall mild osteoarthritic changes are most evident in the medial compartment . LEFT KNEE FOUR VIEWS, 01/07/06: No acute osseous pathology, joint effusion or opaque foreign body is demon strated. Mild arthritic changes are present. RIGH T FINGER, MIDDLE DIGIT, THREE VIEWS, 01/07/06: No acute osseous in jury or opaque foreign body is demonstrated. LUMBA R SPINE FOUR VIEWS, 01/07/06: No acute traumatic or destructive le heri of bone or spondylolysis is demonstrated. Spondylosis and facet arth ropathy are noted. There is mild sacroiliitis, greater on the right. IMPRESSION: NO ACUTE OSSEOUS INJURY DEMONSTRATED IN THE LEFT OR RIGHT KNEE, LUMBAR SPINE, OR RIGHT MIDDLE FINGER. QC=1 WC/jcw/#42152 PAGE 1 Signed Report (CONTINUED) FAX: Jammie Falk [phone] [place]: St: [facility] Name: [facility] [place] : 1960 Age/S: 45/F [address] [facility] Unit #: [id number] Loc: [place], [place] [address] Phys: Jammie Falk MD Acct: [id number] Dis Date: Status: UNK PHONE #: [phone] Exam Date: 01/07/2006 1615 FAX #: [phone] Reason: R - RIGHT EXAMS: CPT CODE: [id number] XR KNEE 4 + V 93210 [id number] XR L-SPINE 4+ VIEWS 74998 [id number] XR FINGER(S) 2 + V 10388 [id number] XR KNEE 4 + V 08029 <Continued> at 1651 Reported and signed by: Jason Torres M.D. CC: Jammie Falk MD Technologist: BLAYNE LO; Bill Patel RT(R),(MR),(CT) [facility] Date/Time/By: 01/08/2006 (0932) : By: CarolJCW Orig Print D/T: (1243) S: 01/14/2006 (8360) PAGE 2 Signed Report
[2019-10-03] MEDS ORDERED: ONDANSETRON HCL 4 MG ORAL DISINTEGRATING TAB PO ONE (16:00)
[2019-10-03] MEDS ORDERED: CEFTRIAXONE SOD 1 GM VIAL IM ONE (16:00)
[2019-10-03] MEDS ORDERED: KETOROLAC TROMETHAMINE 60 MG/2 ML VIAL IM ONE (16:00)
[2019-10-03] MEDS ORDERED: LIDOCAINE HCL 1% LOCAL INJ 20 ML VIAL ONE (16:15)
--- NOTE | 2019-10-03 16:43 | Diagnostic Imaging Report ---
EXAMINATION: CXR 1 [facility] INDICATION: Cough. COMPARISON: None FINDINGS: TUBES and LINES: None. LUNGS: Low lung volumes. There are patchy bibasilar opacities, left greater than right. There is silhouetting of the left hemidiaphragm. PLEURA: No pleural effusion or pneumothorax. HEART AND MEDIASTINUM: The cardiomediastinal silhouette is unremarkable. BONES AND SOFT TISSUES: No acute osseous lesion. Soft tissues are unremarkable. UPPER ABDOMEN: No free air under the diaphragm. IMPRESSION: Low lung volumes with patchy bibasilar opacities, which may represent developing pneumonia in the setting of cough. Recommend follow-up chest radiograph in 6-8 weeks to assess for resolution. Signed by: Dr. Estrada Berg MD on 10/03/2019 4:39 PM
[2019-10-03] MEDS ORDERED: AZITHROMYCIN 250 MG TAB PO ONE (17:00)
--- NOTE | 2019-10-03 18:17 | Emergency Department Note ---
History of Present Illnes History of Present Illness Chief Complaint: cp only when coughing History of Present Illness This is a 59 year old female. was doing well until 2 weeks ago then n,v,d, cough, wheezing, then cp. pt works in the [employer] Historian: Patient Arrival Mode: Car History limited by: condition of the patient (normal) Piano Mover Required: No Onset (how long ago): week(s) (2) Location: n/a Quality: n Radiation: non-radiation Severity: moderate Duration (how long): week(s) (2) Timing of current episode: constant Progression: worsening Chronicity: new Context: recent illness, recent surgery, recent immobilization, recent travel, trauma/injury, new medications, hx of DVT/PE, non-compliance w/ medications Relieving factors: none Exacerbating factors: none Associated symptoms: cough, nausea/vomiting Treatments prior to arrival: none Past Medical/Family History Physician Review I have reviewed the patient's past medical and family history. Any updates have been documented here. Past Medical History Recent Fever: No Clinical Suspicion of Infectio: No New/Unexplained Change in Ment: No Past Medical History: Hypertension, Diabetes, Hyperlipedemia Past Surgical History: Hysterectomy Other Surgery: RIGHT FOOT Social History Smoking Cessation: Never Smoker Counseling Performed: No Alcohol Use: None Any Illegal Drug Use: No TB Exposure/Symptoms: No Physically hurt or threatened: No Family History Family history of heart diseas: No Other Last Tetanus: UTD Any Pre-Existing Lines (PICC,: No Is patient up to date on immun: Yes Last Flu: NONE Last Pneumovax: NONE Review of Systems Review of Systems Constitutional: no symptoms EENTM: no symptoms Cardiovascular: as per HPI Respiratory: as per HPI Gastrointestinal: as per HPI Genitourinary: no symptoms Musculoskeletal: no symptoms Neurological: no symptoms Psychological: no symptoms Endocrine: no symptoms Hematological/Lymphatic: no symptoms Review of other systems All other systems reviewed and negative. Physical Exam Related Data Allergies: Coded Allergies: No Known Allergies (Unverified , 10/03/19) Triage Vital Signs Vital Signs Date Time Temp Pulse Resp B/P (MAP) Pulse Ox O2 Delivery O2 Flow Rate FiO2 10/03/19 14:52 97.2 100 18 162/74 95 Vital signs reviewed: Yes Physical Exam CONSTITUTIONAL Constitutional: well-developed, well-nourished HENT HENT: normocephalic, atraumatic, oropharynx clear/moist, nose normal HENT L/R: left ext ear normal, right ext ear normal EYES Eyes: PERRL, conjunctivae normal NECK Neck: ROM normal PULMONARY Pulmonary: effort normal, other (+forced expiratory wheezes, +cw tenderness) CARDIOVASCULAR Cardiovascular: regular rhythm, heart sounds normal, capillary refill normal, normal rate GASTROINTESTINAL Abdominal: soft, nontender, bowel sounds normal GENITOURINARY Genitourinary: exam deferred SKIN Skin: warm, dry MUSCULOSKELETAL Musculoskeletal: ROM normal NEUROLOGICAL Neurological: alert, oriented x 3, no gross motor or sensory deficits PSYCHOLOGICAL Psychological: mood/affect normal, judgement normal Results Laboratory Lab results reviewed: Yes (influenza= neg, covid negative) Imaging Imaging results reviewed: Yes (cxr= pneumonia) Critical Care Time Subsequent provider I assumed direction of critical care for this patient from another provider of my specialty. Assessment & Plan Reassessment Reassessment research laboratory specialist called me and said pt's covid test= negative. pt called at 0655hrs but no answer. pt clinically has covid 19 Assessment & Plan Final Impression: (1) Pneumonia (2) Reactive airway disease (3) Vomiting (4) Diarrhea (5) Chest wall muscle strain Assessment & Plan rx albuterol, prednisone, azithromycin, cefdinir, bromfed, zofran Depart Disposition: HOME, SELF-CARE Last Vital Signs Date Time Temp Pulse Resp B/P (MAP) Pulse Ox O2 Delivery O2 Flow Rate FiO2 10/03/19 14:52 97.2 100 18 162/74 95 Home Meds Active Scripts D-Methorphan Hb/P-Epd Hcl/Bpm (BROMFED DM COUGH SYRUP) 118 Ml Syrup, 10 ML PO Q4HR PRN for COUGH, #240 ML PRN COUGH(USE ALBUTEROL FIRST), CONGESTION ALLERGY SYMPTOMS Prov:CAYETANO JARAMILLO 10/03/19 Albuterol Sulf* (PROAIR HFA INHALER*) 8.5 Gm Inh, 2 INH PO Q4HR PRN for COUGH, #1 INH PRN COUGH, WHEEZING, SHORTNESS OF BREATH// DISPENSE WITH SPACER Prov:CAYETANO JARAMILLO 10/03/19 Albuterol Sulfate (ALBUTEROL SULFATE) 2.5 Mg/3 Ml Vial.neb, 2.5 MG PO Q4HR PRN for COUGH, #120 UNIT PRN COUGH, WHEEZING, SHORTNESS OF BREATH Prov:CAYETANO JARAMILLO 10/03/19 Cefdinir (OMNICEF) 300 Mg Capsule, 300 MG PO Q12H, #20 CAP Prov:CAYETANO JARAMILLO 10/03/19 Prednisone (PREDNISONE) 20 Mg Tab, 60 MG PO DAILY, #15 TAB take only if blood sugar is less than 150 Prov:CAYETANO JARAMILLO 10/03/19 Azithromycin (AZITHROMYCIN) 500 Mg Tablet, 500 MG PO DAILY, #4 Prov:CAYETANO JARAMILLO 10/03/19 Ondansetron (ONDANSETRON ODT) 8 Mg Tab.rapdis, 4 MG PO Q4HR PRN for NAUSEA AND VOMITING, #20 TAB 1 Refill Prov:CAYETANO JARAMILLO 10/03/19 Medications in the ED Ondansetron HCl 4 mg ONCE ONCE PO Last administered on 10/03/19 16:26; Admin Dose 4 MG; Start 10/03/19 at 16:00; Stop 10/03/19 at 16:41; Status DC Ceftriaxone Sodium 1 gm ONCE ONCE IM Last administered on 10/03/19at 16:24; Admin Dose 1 GM; Start 10/03/19 at 16:00; Stop 10/03/19 at 16:39; Status DC Azithromycin 500 mg ONCE ONCE PO Last administered on 10/03/19at 16:26; Admin Dose 500 MG; Start 10/03/19 at 17:00; Stop 10/03/19 at 17:01; Status DC Ketorolac Tromethamine 60 mg ONCE ONCE IM Last administered on 10/03/19at 16:25; Admin Dose 60 MG; Start 10/03/19 at 16:00; Stop 10/03/19 at 16:40; Status DC Lidocaine HCl 20 ml STK-MED ONCE .ROUTE ; Start 10/03/19 at 16:15; Stop 10/03/19 at 16:09; Status DC CAYETANO JARAMILLO Oct 03, 2019 18:17
[2019-10-03] MEDS ORDERED: AZITHROMYCIN500 MG PO (18:27)
[2019-10-03] MEDS ORDERED: BROMFED DM COU118 ML PO (18:27)
[2019-10-03] MEDS ORDERED: PROAIR HFA INH8.5 GM PO (18:27)
[2019-10-03] MEDS ORDERED: CEFDINIR300 MG PO (18:27)
[2019-10-03] MEDS ORDERED: ALBUTEROL2.5 MG/3 M PO (18:27)
[2019-10-03] MEDS ORDERED: PREDNISONE20 MG PO (18:27)
[2019-10-03] MEDS ORDERED: ONDANSETRON ODT8 MG PO (18:27)
[2019-10-03 19:11] VITALS: BP 107/78
== END 2019-10-03 19:14 | disposition home or self-care (01) ==
LOC: FSED 14:46
DX: R05 Cough (principal); R11.2 Nausea with vomiting, unspecified; J18.9 Pneumonia, unspecified organism; J45.909 Unspecified asthma, uncomplicated; R19.7 Diarrhea, unspecified; S29.011A Strain of muscle and tendon of front wall of thorax, initial encounter; U07.1 COVID-19; I10 Essential (primary) hypertension; E11.9 Type 2 diabetes mellitus without complications; E78.5 Hyperlipidemia, unspecified
CPT/HCPCS: 71045; 82948; 87400; 87635; 96372; 99283; J0696; J1885; J2001; Q0162